=== PATIENT | female | born 1975 | race Hispanic/Latino ===

== ENCOUNTER 2018-03-31 12:12 | Emergency (ER) | payer MEDICAID | END 2018-03-31 14:29 | disposition home or self-care (01) | LOC: EDH 12:12 | DX: S93.691A Other sprain of right foot, initial encounter (principal); X58.XXXA Exposure to other specified factors, initial encounter; Y93.01 Activity, walking, marching and hiking; Y92.89 Other specified places as the place of occurrence of the external cause; Y99.8 Other external cause status | CPT/HCPCS: 73610; 73630 ==

== ENCOUNTER 2018-07-05 15:41 | Emergency (ER) | payer MEDICAID ==
[2018-07-05] MEDS ORDERED: IPRATROPIUM/ALBUTEROL SULFATE 3 ML SOLUTION IH ONE (16:03)
[2018-07-05] MEDS ORDERED: DEXAMETHASONE SOD PHOSPHATE 10MG/ML 1ML VIAL ONE (16:03)
[2018-07-05] MEDS ORDERED: ACETAMINOPHEN EXTRA STRENGTH 500 MG TABLET ONE (16:03)
== END 2018-07-05 16:22 | disposition home or self-care (01) ==
LOC: EDH 15:41
DX: J10.1 Influenza due to other identified influenza virus with other respiratory manifestations (principal); Z72.0 Tobacco use; Z98.890 Other specified postprocedural states
CPT/HCPCS: 94640; 96372; 99283; J1100

== ENCOUNTER 2021-01-02 12:38 | Emergency (ER) | payer MEDICAID, OTHER ==
[~2021-01-02] VITALS: Ht 162.6 cm; Wt 79.4 kg
[2021-01-02] MEDS ORDERED: ACETAMINOPHEN WITH CODEINE 1 TAB TAB PO ONE (13:30)
[2021-01-02] MEDS ORDERED: CEFTRIAXONE 1G VIAL IVP ONE (13:30)
[2021-01-02] MEDS ORDERED: AZITHROMYCIN 250 MG TABLET PO ONE (13:30)
[2021-01-02] MEDS ORDERED: SOLU-MEDROL 125MG VIAL IVP ONE (13:30)
[2021-01-02 13:36] LABS: BASOPHILS % (AUTO) 0.6 % (0.0-5.0); EOSINOPHILS % (AUTO) 2.3 % (0.0-8.0); HEMATOCRIT 27.6 % (36-48); MEAN CORPUSCULAR HEMOGLOBIN 17.9 pg (27.0-33.0); MEAN CORPUSCULAR HGB CONC 27.2 g/dL (32.0-36.0); MEAN CORPUSCULAR VOLUME 65.7 fL (79-99); MONOCYTES % (AUTO) 4.7 % (3.0-13.0); NEUTROPHILS % (AUTO) 60.1 % (40.0-77.0); PLATELET COUNT (AUTO) 244 K/uL (130-400); RED CELL DISTRIBUTION WIDTH 19.2 % (11.0-15.5); WHITE BLOOD COUNT (AUTO) 6.9 K/uL (4.8-10.8)
[2021-01-02 13:49] LABS: ALBUMIN 3.7 g/dL (3.5-5.0); BILIRUBIN,TOTAL 0.5 mg/dL (0.2-1.0); CREATININE 0.8 mg/dL (0.5-1.5); CRP QUANTITATIVE 13.3 mg/L (0.00-9.0); POTASSIUM 3.9 mmol/L (3.5-5.1); TOTAL PROTEIN, SERUM 8.6 g/dL (6.0-8.3)
[2021-01-02 13:54] LABS: B-TYPE NATRIURETIC PEPTIDE 38 pg/mL (0-100)
[2021-01-02] MEDS ORDERED: D-ME1POW16 PO (14:11)
[2021-01-02 14:40] VITALS: BP 126/74
== END 2021-01-02 15:19 | disposition home or self-care (01) ==
LOC: EDH 12:38
DX: J06.9 Acute upper respiratory infection, unspecified (principal); B97.89 Other viral agents as the cause of diseases classified elsewhere; D64.9 Anemia, unspecified; Z20.822 Contact with and (suspected) exposure to COVID-19; Z98.890 Other specified postprocedural states
CPT/HCPCS: 36415; 71045; 80053; 83605; 83880; 85025; 86140; 87040 ×2; 87635; 87804 ×2; 87880; 93005; 96374; 96375; 99285; C9803; J0696; J2930